=== PATIENT | male | born 1960 | race Two or more races ===

== ENCOUNTER 2018-04-27 15:24 | Emergency (ER) | payer OTHER ==
[2018-04-27] MEDS ORDERED: Ondansetron 4 MG/2 ML SDV IVPUSH ONE (15:44)
[2018-04-27] MEDS ORDERED: HYDROmorphone 2 MG/ML SDV IVPUSH ONE (15:44)
[2018-04-27] MEDS ORDERED: Sodium Chloride 0.9% 10 ML Syringe FLUSH PRN (15:44)
[2018-04-27] MEDS ORDERED: Sodium Chloride 0.9% 1,000 ML IV ONE (15:47)
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
== END 2018-04-27 18:30 | disposition home or self-care (01) ==
LOC: FB.ED 15:24
DX: M24.411 Recurrent dislocation, right shoulder (principal); W19.XXXA Unspecified fall, initial encounter
CPT/HCPCS: 23650; 73020; 73030; 96361; 96374; 96375; 99283; J1170; J2405; J7030

== ENCOUNTER 2020-12-30 16:32 | Emergency (ER) | payer OTHER ==
[2020-12-30] MEDS ORDERED: Ondansetron 4 MG/2 ML SDV IVPUSH ONE (16:39)
--- NOTE | 2020-12-30 16:53 | EDM.PDOC ---
ED HPI GENERAL MEDICAL PROBLEM - General Chief Complaint: General Stated Complaint: asking for BAM therapy Time Seen by Provider: 12/30/20 16:40 Source of Information: Reports: Patient, Old Records, RN History Limitations: Reports: No Limitations - History of Present Illness INITIAL COMMENTS - FREE TEXT/NARRATIVE: 60 yo male here with Covid sx's. He has mild SOB. He has nausea without vomiting. No diarrhea. Needs a note for work. Was dx with Covid at work he says. He reports he called his doctor and received no return call. Did not have Covid vaccines. Says he is prediabetic, but doesn't take any meds. He has a new rash in his groin that guzman a little. Onset: Gradual Duration: Day(s):, Getting Worse Location: Reports: Generalized Quality: Reports: Other (no pain) Severity: Moderate (malaise and weakness) Improves with: Reports: None Worsens with: Reports: Other (time) Context: Reports: Other (HPI) Associated Symptoms: Reports: Cough, Nausea/Vomiting (no vomiting). 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) (none) - Related Data Allergies Allergy/AdvReac Type Severity Reaction Status Date / Time No Known Allergies Allergy Verified 04/27/18 18:09 Home Meds: Home Meds Hydrocodone/Acetaminophen [HYDROcodone-Acetaminophen 5-325 MG] 1 each PO Q4HR PRN #16 tablet 04/27/18 [Rx] Ondansetron [Zofran ODT] 4 mg PO Q6H PRN #12 tab.dis 12/30/20 [Rx] metFORMIN HCl [Metformin HCl ER] 100 mg PO BID #120 tab.er.24h 12/30/20 [Rx] Past Medical History HEENT History: Reports: Impaired Vision, Other (See Below) Other HEENT History: Tinnitus Endocrine/Metabolic History: Reports: Obesity/BMI 30+ - Past Surgical History GI Surgical History: Reports: Cholecystectomy Social & Family History - Caffeine Use Caffeine Use: Reports: Energy Drinks, Soda ED ROS GENERAL - Review of Systems Review Of Systems: See Below Constitutional: Reports: Malaise, Weakness (generalized), Fatigue, Decreased Appetite HEENT: Reports: No Symptoms Respiratory: Reports: Cough. Denies: Shortness of Breath, Sputum Cardiovascular: Reports: No Symptoms Endocrine: Reports: No Symptoms (hasn't checked sugar) GI/Abdominal: Reports: Nausea. Denies: Diarrhea, Vomiting : Reports: No Symptoms Musculoskeletal: Reports: No Symptoms Skin: Reports: No Symptoms Neurological: Reports: No Symptoms ED EXAM, GENERAL - Physical Exam Exam: See Below Exam Limited By: No Limitations General Appearance: Alert, WD/WN, No Apparent Distress Eye Exam: Bilateral Eye: Normal Inspection Ears: Normal External Exam, Normal Canal, Hearing Loss Ear Exam: Bilateral Ear: Auricle Normal, Canal Normal Nose: Normal Inspection, No Blood Throat/Mouth: Normal Inspection, Normal Lips, Normal Oropharynx, Normal Voice, No Airway Compromise Head: Atraumatic, Normocephalic Neck: Normal Inspection Respiratory/Chest: No Respiratory Distress, Lungs Clear, Normal Breath Sounds, No Accessory Muscle Use Cardiovascular: Regular Rate, Rhythm, No Edema GI/Abdominal: Soft, Non-Tender Extremities: Normal Inspection Neurological: Alert, Oriented, CN II-XII Intact, Normal Cognition, No Motor/Sensory Deficits Psychiatric: Normal Affect, Normal Mood Skin Exam: Warm, Dry, Intact, Normal Color, Rash (tinea cruris of the L groin). No: No Rash Course - Vital Signs Last Recorded V/S: Last Vital Signs Temp 36.7 C 12/30/20 16:32 Pulse 100 12/30/20 16:32 Resp 18 12/30/20 16:32 BP 151/98 H 12/30/20 16:32 Pulse Ox 93 L 12/30/20 16:32 - Orders/Labs/Meds Orders: Active Orders 24 hr Category Date Time Status Glucose [Blood Glucose Check, Bedside] [RC] ONETIME Care 12/30/20 16:51 Active Labs: Laboratory Tests 12/30/20 Range/Units 16:59 POC Glucose 219 H (80-116) mg/dL Meds: Medications Discontinued Medications Generic Name Dose Route Start Last Admin Trade Name Freq PRN Reason Stop Dose Admin Ondansetron HCl 4 mg 12/30/20 16:39 Ondansetron 4 Mg/2 Ml Sdv IVPUSH 12/30/20 16:40 ONETIME ONE Departure - Departure Time of Disposition: 17:15 Disposition: Home, Self-Care 01 Condition: Fair Clinical Impression: COVID-19, Nausea, Elevated blood sugar - Discharge Information *PRESCRIPTION DRUG MONITORING PROGRAM REVIEWED*: Not Applicable *COPY OF PRESCRIPTION DRUG MONITORING REPORT IN PATIENT OZZIE: Not Applicable Prescriptions: metFORMIN HCl [Metformin HCl ER] 100 mg PO BID #120 tab.er.24h Instructions: Symptoms of COVID-19 - CDC (04/27/2020) Referrals: Krystal See, [employer]OV[employer] WORK[employer] [Primary Care Provider] - Forms: ED Department Discharge Additional Instructions: Take acetaminophen up to 1000 mg every 6 hrs as needed for pain or fever control. Take Zofran as needed for nausea control. Take metformin as directed to try and bring your blood sugar down, should be under 100. Return tomorrow for immunoglobulin infusion(BAM). See your doctor if symptoms don't improve and to recheck your blood sugar. Sepsis Event Note (ED) - Focused Exam Vital Signs: Vital Signs Temp Pulse Resp BP Pulse Ox 12/30/20 16:32 36.7 C 100 18 151/98 H 93 L - My Orders Last 24 Hours: My Active Orders 12/30/20 16:51 Glucose [Blood Glucose Check, Bedside] [RC] ONETIME - Assessment/Plan Last 24 Hours: My Active Orders 12/30/20 16:51 Glucose [Blood Glucose Check, Bedside] [RC] ONETIME
[2020-12-30] MEDS ORDERED: Ondansetron 4 MG Tab.DIS PO ONE (17:23)
== END 2020-12-30 17:45 | disposition home or self-care (01) ==
LOC: FB.ED 16:32
DX: U07.1 COVID-19 (principal); R11.2 Nausea with vomiting, unspecified; E11.65 Type 2 diabetes mellitus with hyperglycemia; E66.9 Obesity, unspecified; Z68.35 Body mass index [BMI] 35.0-35.9, adult; Z79.84 Long term (current) use of oral hypoglycemic drugs
CPT/HCPCS: 82947; 99284; A9270

== ENCOUNTER 2021-01-05 19:22 | Emergency (ER) | payer OTHER ==
[2021-01-05] MEDS ORDERED: Sodium Chloride 0.9% 10 ML Syringe FLUSH PRN ×2 (19:25→19:39)
[2021-01-05] MEDS ORDERED: Labetalol 20 MG/4 ML Syringe IVPUSH STA (19:39)
[2021-01-05] MEDS ORDERED: Iopamidol 755 Mg/ML 100 ML Bottle IV ONE (20:23)
[2021-01-05] MEDS ORDERED: Sodium Chloride 0.9% 1,000 ML IV ONE (20:56)
--- NOTE | 2021-01-05 22:01 | EDM.PDOC ---
ED HPI GENERAL MEDICAL PROBLEM - General Chief Complaint: Chest Pain Stated Complaint: POSS CARB MON. POISONING? Time Seen by Provider: 01/05/21 19:25 Source of Information: Reports: Patient History Limitations: Reports: No Limitations - History of Present Illness INITIAL COMMENTS - FREE TEXT/NARRATIVE: Patient presented to the ED because of a brief episode of chest pain over the left anterior chest area. There is no headache, dizziness or dyspnea. He was apparently exposed to carbon monoxide today. He was diagnose with Covid 11 days ago and received the monoclonal antibody on 12/31/20. L chest Pain Score (Numeric/FACES): 3 - Related Data Allergies Allergy/AdvReac Type Severity Reaction Status Date / Time No Known Allergies Allergy Verified 12/31/20 15:45 Home Meds: Home Meds Hydrocodone/Acetaminophen [HYDROcodone-Acetaminophen 5-325 MG] 1 each PO Q4HR PRN #16 tablet 04/27/18 [Rx] Ketoconazole [Nizoral 2% Crm] 1 applic TOP BID #1 gm 12/30/20 [Rx] Ondansetron [Zofran ODT] 4 mg PO Q6H PRN #12 tab.dis 12/30/20 [Rx] metFORMIN HCl [Metformin HCl ER] 100 mg PO BID #120 tab.er.24h 12/30/20 [Rx] Past Medical History HEENT History: Reports: Impaired Vision Other HEENT History: Tinnitus Endocrine/Metabolic History: Reports: Diabetes, Type II, Obesity/BMI 30+, Other (See Below) Other Endocrine/Metabolic History: pre diabetic Dermatologic History: Reports: Other (See Below) Other Dermatologic History: yeast infection in groin - Infectious Disease History Infectious Disease History: Reports: Chicken Pox, Novel Coronavirus - Past Surgical History HEENT Surgical History: Reports: None GI Surgical History: Reports: Cholecystectomy Endocrine Surgical History: Reports: None Social & Family History - Family History Family Medical History: No Pertinent Family History - Tobacco Use Tobacco Use Status *Q: Former Tobacco User Years of Tobacco use: 5 Used Tobacco, but Quit: Yes Month/Year Tobacco Last Used: 2004 - Caffeine Use Caffeine Use: Reports: Coffee, Tea - Recreational Drug Use Recreational Drug Use: Yes Other Recreational Drug Type: 0 since 2004 ED ROS GENERAL - Review of Systems Review Of Systems: See Below Constitutional: Reports: No Symptoms HEENT: Reports: No Symptoms Respiratory: Reports: No Symptoms Cardiovascular: Reports: Chest Pain Endocrine: Reports: No Symptoms GI/Abdominal: Reports: No Symptoms : Reports: No Symptoms Musculoskeletal: Reports: No Symptoms Skin: Reports: No Symptoms Neurological: Reports: No Symptoms Psychiatric: Reports: No Symptoms Hematologic/Lymphatic: Reports: No Symptoms ED EXAM, GENERAL - Physical Exam Exam: See Below Exam Limited By: No Limitations General Appearance: Alert, No Apparent Distress Ears: Normal External Exam, Normal Canal, Normal TMs Nose: Normal Inspection, Normal Mucosa, No Blood Throat/Mouth: Normal Inspection, Normal Lips, Normal Teeth Head: Atraumatic, Normocephalic Neck: Normal Inspection, Supple, Non-Tender, Full Range of Motion Respiratory/Chest: No Respiratory Distress, Lungs Clear, Normal Breath Sounds, No Accessory Muscle Use, Chest Non-Tender Cardiovascular: Normal Peripheral Pulses, Regular Rate, Rhythm, No Edema, No Gallop, No JVD, No Murmur, No Rub GI/Abdominal: Normal Bowel Sounds, Soft, Non-Tender, No Organomegaly, No Distention, No Abnormal Bruit Back Exam: Normal Inspection, Full Range of Motion Extremities: Normal Inspection, Normal Range of Motion, Non-Tender, No Pedal Edema, Normal Capillary Refill Neurological: Alert, Oriented, CN II-XII Intact, Normal Cognition, Normal Reflexes, No Motor/Sensory Deficits #1 Interpretation EKG Date: 01/05/21 Time: 19:16 Rhythm: Other (Sinus Tach) Rate (Beats/Min): 106 Keno: Normal P-Wave: Present QRS: Normal ST-T: Normal QT: Normal OH/PQ Interval: 127 Comparison: NA - No Prior EKG EKG Interpretation Comments: Sinus Tach LAE Non-specific ST abnormality Course - Vital Signs Text/Narrative:: Lab/EKG, CTA-chest result was reviewed and discussed with patient Labetalol 20 mg IV x1 Last Recorded V/S: Last Vital Signs Temp 36.4 C 01/05/21 19:22 Pulse 108 H 01/05/21 19:22 Resp 28 H 01/05/21 19:22 BP 146/103 H 01/05/21 19:22 Pulse Ox 90 L 01/05/21 22:15 - Orders/Labs/Meds Labs: Laboratory Tests 01/05/21 01/05/21 01/05/21 Range/Units 19:25 19:25 19:25 WBC 8.0 (3.2-10.1) x10-3/uL RBC 5.91 H (3.90-5.90) x10(6)uL Hgb 16.9 (12.9-17.7) g/dL Hct 51.9 H (38.3-50.1) % MCV 87.8 (80.8-98.7) fL MCH 28.6 (27.0-33.3) pg MCHC 32.6 (28.7-35.3) g/dL RDW 14.4 (12.4-15.0) % Plt Count 308 (117-477) x10(3)uL MPV 8.1 (6.7-11.0) fL Neut % (Auto) 74.6 H (40.3-71.8) % Lymph % (Auto) 13.3 L (15.8-45.3) % [place] % (Auto) 10.0 (5.5-15.2) % Eos % (Auto) 1.7 (0.1-6.8) % Baso % (Auto) 0.4 (0.3-3.8) % Neut # (Auto) 6.0 (1.7-6.9) x10-3/uL Lymph # (Auto) 1.1 (0.5-4.5) x10-3/uL [place] # (Auto) 0.8 (0.0-1.2) x10-3/uL Eos # (Auto) 0.1 (0.0-0.6) x10-3/uL Baso # (Auto) 0.0 (0.0-0.3) x10-3/uL D-Dimer, Quantitative 9.57 H (0.0-0.59) mg/LFEU Sodium 137 (135-145) mmol/L Potassium 3.5 (3.5-5.3) mmol/L Chloride 101 (100-110) mmol/L Carbon Dioxide 27 (21-32) mmol/L BUN 25 H (7-18) mg/dL Creatinine 1.6 H (0.70-1.30) mg/dL Est Cr Clr Drug Dosing TNP Estimated GFR (MDRD) 44 L (>60) BUN/Creatinine Ratio 15.6 (9-20) Glucose 173 H (80-116) mg/dL Calcium 8.6 (8.6-10.2) mg/dL Total Bilirubin 0.7 (0.1-1.3) mg/dL AST 37 H (5-25) IU/L ALT 60 H (12-36) U/L Alkaline Phosphatase 52 L (56-112) IU/L Troponin I (4.0-60.3) pg/mL NT-Pro-B Natriuret Pep (<=125) pg/mL Total Protein 7.4 (6.0-8.0) g/dL Albumin 2.2 L (3.2-4.6) g/dL Globulin 5.2 g/dL Albumin/Globulin Ratio 0.4 01/05/21 Range/Units 19:25 WBC (3.2-10.1) x10-3/uL RBC (3.90-5.90) x10(6)uL Hgb (12.9-17.7) g/dL Hct (38.3-50.1) % MCV (80.8-98.7) fL MCH (27.0-33.3) pg MCHC (28.7-35.3) g/dL RDW (12.4-15.0) % Plt Count (117-477) x10(3)uL MPV (6.7-11.0) fL Neut % (Auto) (40.3-71.8) % Lymph % (Auto) (15.8-45.3) % [place] % (Auto) (5.5-15.2) % Eos % (Auto) (0.1-6.8) % Baso % (Auto) (0.3-3.8) % Neut # (Auto) (1.7-6.9) x10-3/uL Lymph # (Auto) (0.5-4.5) x10-3/uL [place] # (Auto) (0.0-1.2) x10-3/uL Eos # (Auto) (0.0-0.6) x10-3/uL Baso # (Auto) (0.0-0.3) x10-3/uL D-Dimer, Quantitative (0.0-0.59) mg/LFEU Sodium (135-145) mmol/L Potassium (3.5-5.3) mmol/L Chloride (100-110) mmol/L Carbon Dioxide (21-32) mmol/L BUN (7-18) mg/dL Creatinine (0.70-1.30) mg/dL Est Cr Clr Drug Dosing Estimated GFR (MDRD) (>60) BUN/Creatinine Ratio (9-20) Glucose (80-116) mg/dL Calcium (8.6-10.2) mg/dL Total Bilirubin (0.1-1.3) mg/dL AST (5-25) IU/L ALT (12-36) U/L Alkaline Phosphatase (56-112) IU/L Troponin I 11.0 (4.0-60.3) pg/mL NT-Pro-B Natriuret Pep 277 H (<=125) pg/mL Total Protein (6.0-8.0) g/dL Albumin (3.2-4.6) g/dL Globulin g/dL Albumin/Globulin Ratio Meds: Medications Discontinued Medications Generic Name Dose Route Start Last Admin Trade Name Freq PRN Reason Stop Dose Admin Sodium Chloride 1,000 mls @ 999 mls/hr 01/05/21 20:56 01/05/21 21:03 Normal Saline IV 01/05/21 21:56 999 mls/hr .BOLUS ONE Administration Iopamidol 100 ml 01/05/21 20:23 01/05/21 20:50 Iopamidol 755 Mg/Ml 100 Ml Bottle IV 01/05/21 20:24 85 ml . DIRECTED ONE Administration Labetalol HCl 20 mg 01/05/21 19:39 01/05/21 19:52 Labetalol 20 Mg/4 Ml Syringe IVPUSH 01/05/21 19:40 20 mg NOW STA Administration Protocol Sodium Chloride 10 ml 01/05/21 19:25 01/05/21 19:51 Sodium Chloride 0.9% 10 Ml Syringe FLUSH 10 ml ASDIRECTED PRN Administration Keep Vein Open Sodium Chloride 10 ml 01/05/21 19:39 Sodium Chloride 0.9% 10 Ml Syringe FLUSH ASDIRECTED PRN Keep Vein Open Departure - Departure Time of Disposition: 22:00 Disposition: Home, Self-Care 01 Condition: Good Clinical Impression: Chest wall pain - Discharge Information Instructions: COVID-19 Frequently Asked Questions, Nonspecific Chest Pain, Adult, [id number] Referrals: PCP,None [Primary Care Provider] - Forms: ED Department Discharge Additional Instructions: Please read 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
--- NOTE | 2021-01-06 11:00 | CR ---
CHEST ONE VIEW INDICATION: Chest pain, dyspnea, recent COVID infection. FINDINGS: AP portable upright view of the chest 01/05/21 - no comparisons. The heart appeared normal in size. The aorta is calcified minimally in the arch and minimally tortuous. Bilateral infiltration is noted compatible with pneumonia, and in this COVID-19 positive patient is compatible with COVID-19 pneumonia. Very poor inspiration is noted. MTDD
== END 2021-01-05 22:25 | disposition home or self-care (01) ==
LOC: FB.ED 19:22
DX: R07.89 Other chest pain (principal); E11.9 Type 2 diabetes mellitus without complications; E66.9 Obesity, unspecified; Z87.891 Personal history of nicotine dependence; Z79.84 Long term (current) use of oral hypoglycemic drugs; Z79.899 Other long term (current) drug therapy; Z68.34 Body mass index [BMI] 34.0-34.9, adult
CPT/HCPCS: 36415; 71045; 71275; 80053; 83880; 84484; 85025; 85379; 93005; 96374; 99285; J3490; J7030; Q9967

== ENCOUNTER 2022-02-16 06:48 | Day surgery (SDC) | payer OTHER ==
[2022-02-16 07:42] LABS: ESTIMATED GFR 56 mL/min (>60)
[2022-02-16] MEDS ORDERED: Sodium Chloride 0.9% 10 ML Syringe FLUSH PRN (08:35)
[2022-02-16] MEDS ORDERED: Iopamidol 755 MG/ML 150 ML Bottle IV ONE (08:46)
[2022-02-16] MEDS ORDERED: Ketorolac 30 MG/ML SDV IVPUSH ONE ×2 (08:57→12:34)
[2022-02-16] MEDS ORDERED: Sodium Chloride 0.9% 1,000 ML IV SCH ×2 (10:30→13:00)
[2022-02-16] MEDS ORDERED: Lactated Ringers 1,000 ML IV ONE (12:34)
[2022-02-16] MEDS ORDERED: Propofol 200 MG/20 ML SDV IV ONE (12:34)
[2022-02-16] MEDS ORDERED: Midazolam 1 MG/ML 2 ML SDV IV ONE (12:34)
[2022-02-16] MEDS ORDERED: Rocuronium 100 MG/10 ML MDV IV ONE (12:34)
[2022-02-16] MEDS ORDERED: Ondansetron 4 MG/2 ML SDV IVPUSH ONE (12:34)
[2022-02-16] MEDS ORDERED: fentaNYL 100 MCG/2 ML SDV IV ONE (12:34)
[2022-02-16] MEDS ORDERED: Neostigmine Methylsulfate 10 MG/10 ML MDV IVPUSH ONE (12:34)
[2022-02-16] MEDS ORDERED: Glycopyrrolate 0.2 MG/ML 5 ML MDV IV ONE (12:34)
[2022-02-16] MEDS ORDERED: Succinylcholine 200 MG/10 ML MDV IV ONE (12:34)
[2022-02-16] MEDS ORDERED: Dexmedetomidine 200 MCG/2 ML SDV IV ONE (12:34)
[2022-02-16] MEDS ORDERED: fentaNYL 100 MCG/2 ML SDV IVPUSH ONE (13:08)
[2022-02-16] MEDS ORDERED: Lactated Ringers 1,000 ML IV SCH ×2 (14:00→16:15)
[2022-02-16] MEDS ORDERED: Bupivacaine 0.5%/EPINEPHrine 1:200,000 10 ML SDV INJECT ONE (15:13)
[2022-02-16] MEDS ORDERED: Piperacillin/Tazobactam 3.375 GM in Sodium Chloride 0.9% 50 ML IV ONE (16:00)
[2022-02-16] MEDS ORDERED: Ketorolac 30 MG/ML SDV IVPUSH PRN (16:06)
[2022-02-16] MEDS ORDERED: Morphine 2 MG/ML SYRINGE IVPUSH PRN (16:06)
[2022-02-16] MEDS ORDERED: Ondansetron 4 MG/2 ML SDV IVPUSH PRN (16:06)
[2022-02-16] MEDS ORDERED: Acetaminophen/HYDROcodone 325-5 MG Tab PO PRN (16:06)
[2022-02-16] MEDS ORDERED: 50% Dextrose in Water 50 ML Syringe IVPUSH PRN (17:15)
[2022-02-16] MEDS ORDERED: Glucagon,Human Recombinant 1 MG Vial IM PRN (17:15)
[2022-02-16] MEDS ORDERED: Insulin Lispro 100 Unit/ML 3 ML KwikPen SUBCUT ONE (17:54)
[2022-02-16] MEDS: Insulin Lispro 100 Unit/ML 3 ML KwikPen SUBCUT SCH ×2 (17:56→17:58)
[2022-02-16] MEDS: Piperacillin/Tazobactam 3.375 GM in Sodium Chloride 0.9% 50 ML IV SCH (21:13)
[2022-02-17] MEDS: Acetaminophen/HYDROcodone 325-5 MG Tab PO PRN ×2 (03:02→11:03)
[2022-02-17] MEDS: Piperacillin/Tazobactam 3.375 GM in Sodium Chloride 0.9% 50 ML IV SCH ×2 (04:08→10:08)
[2022-02-17] MEDS: Insulin Lispro 100 Unit/ML 3 ML KwikPen SUBCUT SCH ×2 (08:30→12:27)
== END 2022-02-17 12:58 ==
LOC: FB.ED 06:48 → FB.SDS 12:30 → FB.MS 12:33 → FB.SDS 12:33 → FB.MS 16:07 → FB.SDS 02-17 12:58 → FB.MS 02-17 12:58
PROVIDERS: ATTEND Surgery
DX: K35.80 Unspecified acute appendicitis (principal); E11.9 Type 2 diabetes mellitus without complications; E66.9 Obesity, unspecified; Z20.822 Contact with and (suspected) exposure to COVID-19; Z79.899 Other long term (current) drug therapy; Z79.84 Long term (current) use of oral hypoglycemic drugs; Z86.16 Personal history of COVID-19; Z90.49 Acquired absence of other specified parts of digestive tract
CPT/HCPCS: 00840; 36415; 44970; 74177; 80053; 81001; 82947; 83605; 85025; 85379; 86140; 87635; 88304; 96361; 96374; 99285; A9270; J0330; J1815; J1885; J2250; J2405; J2543; J2704; J2710; J3010; J3490; J7030; J7120; Q9967; U0002